=== PATIENT | female | born 1985 | race Caucasian/White ===

== ENCOUNTER 2019-06-03 15:59 | Emergency (ER) | payer MEDICAID ==
[~2019-06-03] VITALS: Ht 160 cm; Wt 61.8 kg
[~2019-06-03 15:59] MED LIST: ENOX60DI13 SC
[2019-06-03 16:03] VITALS: Ht 160 cm; Wt 61.8 kg
[2019-06-03] MEDS ORDERED: RIVAROXABAN 15 MG TABLET PO ONE (17:30)
[2019-06-03] MEDS ORDERED: ENOXAPARIN 80 MG/0.8 ML SYG SC SCH (18:00)
[2019-06-03 18:41] VITALS: BP 118/80; PULSE 76; RESP 18
== END 2019-06-03 18:44 | disposition home or self-care (01) ==
LOC: E/R 15:59
DX: I82.411 Acute embolism and thrombosis of right femoral vein (principal)
CPT/HCPCS: 93971; 96372; J1650; Z7502; Z7610